=== PATIENT | male | born 1945 | race Caucasian/White ===

== ENCOUNTER 2016-10-25 12:24 | Emergency (ER) | payer MEDICARE ==
[~2016-10-25] VITALS: Ht 172.7 cm; Wt 87.0 kg
[~2016-10-25 12:24] MED LIST: ALBUTEROL1 IN; ALPRAZOLAM0.25 MG PO; BENADRYL25 M1 OR; BUPROPION150 M4 PO; CEPHALEXIN500 MG PO; CIPRO500 MG OR; CIPROFLOXACN500 MG PO; DIPHENHYDRAM25 MG PO; DOXYCYCL HYC100 MG PO; HYDROCHLOR12.5 MG/CA PO; HYDROCHLOROT12.5 MG PO; ISOSORB MONO30 MG PO; LISINOPRIL10 MG PO; LORTAB 1010 MG PO; LORTAB 5/3255 MG; LORTAB 5/3255 MG PO; LORTAB 7.5-3251 TAB PO; LYRICA50 MG PO; MEDDOSEPAK PO; METOPROL TAR25 MG PO; MIRTAZAPINE15 MG PO; NASONEX50 MCG/AC NAB; NITROGLYCRN TL; OXY1; PERCOCET 5/321 COMBO PO; PERCOCET 5/325M1 TAB PO; PERCOCET1 TA1 OR; PERCOCET1 TA3 PO; PLAVIX75 MG PO; PREDNISONE20 MG PO; PREDNISONE50 MG PO; PROAIR HFA IN; SIMVASTATIN40 MG PO; SPIRIVA IN; SYMBICORT1 AE1 IN; TIZANIDINE HCL2 MG PO; TRAMADOL HCL50 MG PO; ULTRAM50 M1 OR; ULTRAM50 M1 PO; VENTOLIN HFA IN; ZOFRAN ODT8 MG PO; ZOLPIDEM10 M1 PO; ZPAK PO
[2016-10-25 14:12] VITALS: BP 138/78
== END 2016-10-25 14:30 | disposition home or self-care (01) ==
LOC: ED 12:24
PROC: 0HQFXZZ Repair Right Hand Skin, External Approach (ICD-10-PCS; principal; 2016-10-25)
DX: S61.210A Laceration without foreign body of right index finger without damage to nail, initial encounter (principal); S60.412A Abrasion of right middle finger, initial encounter; W31.2XXA Contact with powered woodworking and forming machines, initial encounter; Y93.89 Activity, other specified; Y92.009 Unspecified place in unspecified non-institutional (private) residence as the place of occurrence of the external cause

== ENCOUNTER 2017-03-26 21:38 | Observation (INO) | payer MEDICARE ==
[~2017-03-26] VITALS: Ht 172.7 cm; Wt 82.1 kg
[2017-03-26 23:04] LABS: HEMATOCRIT 46.7 % (39.0-50.0); IMMATURE GRANULOCYTES 0.3 % (0.0-1.0); MEAN CELL VOLUME 95.3 fL CALC (80.0-100.0); MEAN CORPUSCULAR HGB 32.7 pG CALC (26.0-32.0); MEAN CORPUSCULAR HGB CONC 34.3 g/L CALC (32.0-36.0); NEUT# 5.62 thou/uL (1.82-7.42); RED BLOOD COUNT 4.9 mill/uL (4.70-6.10); RED CELL DISTRI WIDTH 13.2 % (11.5-15.5)
[2017-03-26 23:11] LABS: ACT PARTIAL THROMBO TIME 26.2 SECONDS (20.0-32.5); PROTHROMBIN TIME 10.9 SECONDS (9.0-12.5)
[2017-03-26 23:22] LABS: ALBUMIN 4.4 g/dL (3.2-5.0); ALKALINE PHOSPHATASE 90 u/l (38-126); ANION GAP 17 (6-22 (CALC)); BILIRUBIN, TOTAL 0.7 mg/dL (0.0-1.4); BUN 13 mg/dL (8-23); BUN/CREATININE RATIO 9 (12-20 (CALC)); CALCIUM 9.8 mg/dL (8.4-10.2); CARBON DIOXIDE 26 mmol/l (22-30); CHLORIDE 109 mmol/l (95-108); CREATININE 1.4 mg/dL (0.7-1.3); GFR 50 ML/MIN (>=60 (CALC)); GFR FOR AFR.AMER. > 60 ML/MIN (>=60 (CALC)); GLUCOSE 87 mg/dL (82-115); POTASSIUM 3.7 mmol/l (3.5-5.1); SGOT/AST 21 u/l (19-48); SGPT/ALT 31 u/l (11-66); SODIUM 148 mmol/l (137-146)
[2017-03-26 23:30] LABS: MYOGLOBIN 75 ng/mL (0 - 121)
[2017-03-27 02:01] LABS: URINE BILIRUBIN - DIPSTICK NEGATIVE (NEGATIVE); URINE BLOOD DIPSTICK TRACE-LYSED (NEGATIVE); URINE CLARITY CLEAR; URINE COLOR YELLOW; URINE GLUCOSE - DIPSTICK NEGATIVE (NEGATIVE); URINE KETONE NEGATIVE (NEGATIVE); URINE LEUK ESTERASE NEGATIVE (NEGATIVE); URINE NITRITE - DIPSTICK NEGATIVE (Negative); URINE PROTEIN - DIPSTICK NEGATIVE (NEG-TRACE); URINE UROBILINOGEN - DIPSTICK 0.2 E.U./dL (0.2)
[2017-03-27 03:05] VITALS: BP 133/66
[2017-03-27 08:08] VITALS: BP 149/75; BP 187/89
[2017-03-27 11:14] VITALS: BP 124/65
[2017-03-27] MEDS ORDERED: PREDNISONE20 MG PO (13:13)
== END 2017-03-27 13:58 | disposition home or self-care (01) ==
LOC: ED 21:38 → ED-I 03-27 00:40 → ED 03-27 01:53 → ICU 03-27 01:54 → MS2 03-27 01:54
PROVIDERS: Emergency Medicine; ADMIT Internal Medicine; ATTEND Internal Medicine
DX: T63.441A Toxic effect of venom of bees, accidental (unintentional), initial encounter (principal); L50.0 Allergic urticaria; J44.1 Chronic obstructive pulmonary disease with (acute) exacerbation; I25.10 Atherosclerotic heart disease of native coronary artery without angina pectoris; I10 Essential (primary) hypertension; E78.5 Hyperlipidemia, unspecified; I73.9 Peripheral vascular disease, unspecified; F17.210 Nicotine dependence, cigarettes, uncomplicated; Z95.828 Presence of other vascular implants and grafts; Z95.5 Presence of coronary angioplasty implant and graft; Z95.1 Presence of aortocoronary bypass graft

== ENCOUNTER 2017-05-05 15:54 | Emergency (ER) | payer MEDICARE ==
[~2017-05-05] VITALS: Ht 172.7 cm; Wt 80.0 kg
[2017-05-05] MEDS ORDERED: EPIPEN 2-P0.3 MG/0.3 SC (18:44)
[2017-05-05 18:51] VITALS: BP 114/59
== END 2017-05-05 19:03 | disposition home or self-care (01) ==
LOC: ED 15:54
DX: T63.441A Toxic effect of venom of bees, accidental (unintentional), initial encounter (principal); J44.9 Chronic obstructive pulmonary disease, unspecified; I25.10 Atherosclerotic heart disease of native coronary artery without angina pectoris; I73.9 Peripheral vascular disease, unspecified; I10 Essential (primary) hypertension; E78.00 Pure hypercholesterolemia, unspecified; F17.210 Nicotine dependence, cigarettes, uncomplicated; Z95.1 Presence of aortocoronary bypass graft; Z95.5 Presence of coronary angioplasty implant and graft; Z95.828 Presence of other vascular implants and grafts

== ENCOUNTER 2020-01-08 20:50 | Observation (INO) | payer MEDICARE ==
[~2020-01-08] VITALS: Ht 172.7 cm; Wt 81.3 kg
[~2020-01-08 20:50] MED LIST changes: +EPIPEN 2-P0.3 MG/0.3 SC
[2020-01-08 21:40] LABS: HEMATOCRIT 48.3 % (39.0-50.0); HEMOGLOBIN 15.7 g/dl (14.0-18.0); IMMATURE GRANULOCYTES 0.4 % (0.0-5.0); MEAN CELL VOLUME 93.2 fL CALC (80.0-100.0); MEAN CORPUSCULAR HGB 30.3 pG CALC (26.0-32.0); MEAN CORPUSCULAR HGB CONC 32.5 g/dL CAL (32.0-36.0); NEUT# 7.64 thou/uL (1.82-7.42); RED BLOOD COUNT 5.18 mill/uL (4.70-6.10); RED CELL DISTRI WIDTH 14.2 % (11.5-15.5)
[2020-01-08 21:49] LABS: ALBUMIN 4.5 g/dL (3.2-5.0); BILIRUBIN, TOTAL 0.5 mg/dL (0.0-1.4); CREATININE 1.6 mg/dL (0.7-1.3); POTASSIUM 3.8 mmol/l (3.5-5.1); TOTAL PROTEIN 7.2 g/dL (6.3-8.2)
[2020-01-08 22:16] LABS: MYOGLOBIN 143 ng/mL (0 - 121)
[2020-01-08 23:57] VITALS: BP 127/58
[2020-01-09 03:45] VITALS: BP 114/61
[2020-01-09 08:00] VITALS: BP 106/55
[2020-01-09 09:48] VITALS: BP 106/55
[2020-01-09] MEDS ORDERED: KLONOPIN0.5 MG PO (09:49)
[2020-01-09] MEDS ORDERED: EPIPEN 2-P0.3 MG/0.3 IM (09:51)
[2020-01-09] MEDS ORDERED: MEDDOSEPAK PO (09:52)
== END 2020-01-09 10:28 | disposition home or self-care (01) ==
LOC: ED 20:50 → ED-I 22:44 → ED 22:59 → MS2 23:00
PROVIDERS: Emergency Medicine; ADMIT Internal Medicine; ATTEND Internal Medicine
DX: T63.441A Toxic effect of venom of bees, accidental (unintentional), initial encounter (principal); R07.9 Chest pain, unspecified; R06.2 Wheezing; R06.02 Shortness of breath; I10 Essential (primary) hypertension; J43.9 Emphysema, unspecified; I25.10 Atherosclerotic heart disease of native coronary artery without angina pectoris; I73.9 Peripheral vascular disease, unspecified; E78.5 Hyperlipidemia, unspecified; F17.210 Nicotine dependence, cigarettes, uncomplicated; I25.2 Old myocardial infarction; Z86.73 Personal history of transient ischemic attack (TIA), and cerebral infarction without residual deficits; Z95.828 Presence of other vascular implants and grafts; Z95.1 Presence of aortocoronary bypass graft; Z95.5 Presence of coronary angioplasty implant and graft; Z99.81 Dependence on supplemental oxygen; Z11.59 Encounter for screening for other viral diseases
CPT/HCPCS: G0378

== ENCOUNTER 2021-05-11 14:42 | Emergency (ER) | payer MEDICARE ==
[~2021-05-11] VITALS: Ht 172.7 cm; Wt 80.0 kg
[~2021-05-11 14:42] MED LIST changes: +EPIPEN 2-P0.3 MG/0.3 IM; +KLONOPIN0.5 MG PO
[2021-05-11 15:39] LABS: HEMATOCRIT 49.9 % (39.0-50.0); HEMOGLOBIN 16.8 g/dl (14.0-18.0); IMMATURE GRANULOCYTES 0.2 % (0.0-5.0); MEAN CELL VOLUME 94.3 fL CALC (80.0-100.0); MEAN CORPUSCULAR HGB 31.8 pG CALC (26.0-32.0); MEAN CORPUSCULAR HGB CONC 33.7 g/dL CAL (32.0-36.0); NEUT# 2.76 thou/uL (1.82-7.42); RED BLOOD COUNT 5.29 mill/uL (4.70-6.10); RED CELL DISTRI WIDTH 14.1 % (11.5-15.5)
[2021-05-11 15:57] LABS: ALBUMIN 4.5 g/dL (3.2-5.0); ALKALINE PHOSPHATASE 94 u/l (38-126); AMYLASE 85 u/l (30-110); ANION GAP 14 (6-22 (CALC)); BUN 31 mg/dL (8-23); BUN/CREATININE RATIO 16 (12-20 (CALC)); CARBON DIOXIDE 27 mmol/l (22-30); CHLORIDE 100 mmol/l (95-108); CREATININE 1.9 mg/dL (0.7-1.3); GFR 35 ML/MIN (>=60 (CALC)); GFR FOR AFR.AMER. 42 ML/MIN (>=60 (CALC)); LIPASE 287 u/l (23-300); POTASSIUM 4.3 mmol/l (3.5-5.1); SODIUM 137 mmol/l (137-146)
[2021-05-11 15:58] LABS: ACT PARTIAL THROMBO TIME 26.1 SECONDS (20.0-32.5); PROTHROMBIN TIME 10.1 SECONDS (9.0-12.5)
[2021-05-11 16:01] LABS: BILIRUBIN, TOTAL 0.8 mg/dL (0.0-1.4); SGOT/AST 52 u/l (19-48)
[2021-05-11] MEDS ORDERED: ZOFRAN4 MG/TAB PO (16:41)
[2021-05-11 17:33] VITALS: BP 137/73
== END 2021-05-11 17:33 | disposition home or self-care (01) ==
LOC: ED 14:42
DX: U07.1 COVID-19 (principal); E86.0 Dehydration; J44.9 Chronic obstructive pulmonary disease, unspecified; I10 Essential (primary) hypertension; I25.2 Old myocardial infarction; Z99.81 Dependence on supplemental oxygen; F17.210 Nicotine dependence, cigarettes, uncomplicated

== ENCOUNTER 2022-06-23 17:29 | Emergency (ER) | payer MEDICARE ==
[~2022-06-23] VITALS: Ht 172.7 cm; Wt 68.2 kg
[~2022-06-23 17:29] MED LIST changes: +ZOFRAN4 MG/TAB PO
[2022-06-23 17:43] VITALS: BP 160/76
[2022-06-23 18:01] LABS: HEMATOCRIT 43.3 % (39.0-50.0); HEMOGLOBIN 14.2 g/dl (14.0-18.0); IMMATURE GRANULOCYTES 0.2 % (0.0-5.0); MEAN CELL VOLUME 95.6 fL CALC (80.0-100.0); MEAN CORPUSCULAR HGB 31.3 pG CALC (26.0-32.0); MEAN CORPUSCULAR HGB CONC 32.8 g/dL CAL (32.0-36.0); NEUT# 5.73 thou/uL (1.82-7.42); RED BLOOD COUNT 4.53 mill/uL (4.70-6.10)
[2022-06-23 18:12] LABS: ALBUMIN 4.3 g/dL (3.2-5.0); ALKALINE PHOSPHATASE 90 u/l (38-126); ANION GAP 12 (6-22 (CALC)); BILIRUBIN, TOTAL 0.2 mg/dL (0.0-1.4); BUN 16 mg/dL (8-23); BUN/CREATININE RATIO 13 (12-20 (CALC)); CARBON DIOXIDE 30 mmol/l (22-30); CHLORIDE 104 mmol/l (95-108); CREATININE 1.3 mg/dL (0.7-1.3); GFR FOR AFR.AMER. > 60 ML/MIN (>=60 (CALC)); GFR OTHER RACES 54 ML/MIN (>=60 (CALC)); POTASSIUM 3.7 mmol/l (3.5-5.1); SGOT/AST 54 u/l (19-48); SODIUM 142 mmol/l (137-146); TOTAL PROTEIN 7.1 g/dL (6.3-8.2)
[2022-06-23 18:20] LABS: ACT PARTIAL THROMBO TIME 23.5 SECONDS (20.0-32.5); PROTHROMBIN TIME 10.2 SECONDS (9.0-12.5)
[2022-06-23 20:50] VITALS: BP 121/66
[2022-06-23 21:00] VITALS: BP 122/58
== END 2022-06-23 20:11 | disposition short-term general hospital (02) ==
LOC: ED 17:29
PROVIDERS: Nurse Practitioner
DX: I77.9 Disorder of arteries and arterioles, unspecified (principal); I10 Essential (primary) hypertension; J44.9 Chronic obstructive pulmonary disease, unspecified; G20 Parkinson's disease; I71.40 Abdominal aortic aneurysm, without rupture, unspecified; I25.2 Old myocardial infarction; F17.200 Nicotine dependence, unspecified, uncomplicated; Z95.1 Presence of aortocoronary bypass graft; Z95.5 Presence of coronary angioplasty implant and graft; Z79.02 Long term (current) use of antithrombotics/antiplatelets; Z95.820 Peripheral vascular angioplasty status with implants and grafts; Z20.822 Contact with and (suspected) exposure to COVID-19
CPT/HCPCS: J1644

== ENCOUNTER 2022-06-29 15:43 | Inpatient (IN) | payer MEDICARE ==
[2022-06-29] VITALS (13 sets, daily range): BP systolic 70–168; BP diastolic 44–92
[~2022-06-29] VITALS: Ht 172.7 cm; Wt 70.0 kg
--- NOTE | 2022-06-29 15:45 | NUR ---
PT TO ROOM VIA WC
[2022-06-29 16:27] LABS: HEMATOCRIT 45.7 % (39.0-50.0); HEMOGLOBIN 14.9 g/dl (14.0-18.0); IMMATURE GRANULOCYTES 0.2 % (0.0-5.0); MEAN CORPUSCULAR HGB 31.3 pG CALC (26.0-32.0); MEAN CORPUSCULAR HGB CONC 32.6 g/dL CAL (32.0-36.0); NEUT# 7.7 thou/uL (1.82-7.42); RED BLOOD COUNT 4.76 mill/uL (4.70-6.10); RED CELL DISTRI WIDTH 14.1 % (11.5-15.5)
[2022-06-29 16:36] LABS: ALBUMIN 4.6 g/dL (3.2-5.0); CREATININE 1.4 mg/dL (0.7-1.3); POTASSIUM 3.8 mmol/l (3.5-5.1); TOTAL PROTEIN 8.2 g/dL (6.3-8.2)
[2022-06-29 16:37] LABS: BILIRUBIN, TOTAL 0.8 mg/dL (0.0-1.4)
[2022-06-29 16:40] LABS: PROTHROMBIN TIME 10.4 SECONDS (9.0-12.5)
--- NOTE | 2022-06-29 17:55 | NUR ---
PT ADVISED OF WAIT TIME FOR TEST RESULTS. CALL LIGHT PROVIDED.
--- NOTE | 2022-06-29 19:00 | NUR ---
PT ADVISED OF CURRENT POC. VOICED UNDERSTANDING.
--- NOTE | 2022-06-29 20:13 | NUR ---
pt to radiology for us of ble, returned without incident.
--- NOTE | 2022-06-29 20:50 | NUR ---
REPORT CALLED TO SANJEEV HERMAN PT TO ICU ON HEPARING DRIP IV SITE HEALTHY. STABLE CONDITION.
--- NOTE | 2022-06-29 21:10 | NUR ---
PT ARRIVED TO UNIT VIA STRETCHER, ON NC AT 2L, WITH HEPARIN DRIP CONNECTED. PT DOES NOT LOOK TO BE IN ANY DISTRESS. ALERT AND ORIENTED, FOLLOWING COMMANDS. PT WAS ABLE TO STAND AND PIVOT TO THE BED, BUT LOOKS TO BE SLIGHTLY UNSTABLE. BODY ASSESSMENT COMPLETED, PT HAS MILD BRUISING TO HIS LEFT GROIN, BUT SKIN IS INTACT THROUGHOUT. PT DENIES PAIN AT THIS TIME. VITAL SIGNS ARE WITHIN NORMAL LIMITS. CALL LIGHT AND PERSONAL BELONGINGS WITHIN REACH.
--- NOTE | 2022-06-29 22:00 | NUR ---
SHIFT REASSESSMENT - NO CHANGE IN PT STATUS AT THIS TIME. VITAL SIGNS ARE WITHIN NORMAL LIMITS. PT CONTINUES ON HEPARIN DRIP. CALL LIGHT WITHIN REACH. SAFETY PRECAUTIONS ARE IN PLACE.
[2022-06-30] VITALS (48 sets, daily range): BP systolic 94–162; BP diastolic 59–125
--- NOTE | 2022-06-30 | NUR ---
SHIFT REASSESSMENT - NO CHANGE IN PT STATUS AT THIS TIME.
--- NOTE | 2022-06-30 02:00 | NUR ---
SHIFT REASSESSMENT - PTT DRAWN BY THE LAB, RESULTS PENDING.
--- NOTE | 2022-06-30 02:00 | NUR ---
PTT RESULTED, TITRATED HEPARIN PER PERAMETERS.
--- NOTE | 2022-06-30 04:00 | NUR ---
SHIFT REASSESSMENT - NEXT PTT FOR PT WILL BE ON 0830 TODAY. NO CHANGES IN PT STATUS AT THIS TIME. VITAL SIGNS ARE WITHIN NORMAL LIMITS. CALL LIGHT WITHIN REACH. SAFETY PRECAUTIONS ARE IN PLACE.
[2022-06-30 05:56] LABS: HEMATOCRIT 41.3 % (39.0-50.0); HEMOGLOBIN 13.7 g/dl (14.0-18.0); IMMATURE GRANULOCYTES 0.2 % (0.0-5.0); MEAN CELL VOLUME 94.7 fL CALC (80.0-100.0); MEAN CORPUSCULAR HGB 31.4 pG CALC (26.0-32.0); MEAN CORPUSCULAR HGB CONC 33.2 g/dL CAL (32.0-36.0); NEUT# 5.12 thou/uL (1.82-7.42); RED BLOOD COUNT 4.36 mill/uL (4.70-6.10); RED CELL DISTRI WIDTH 13.7 % (11.5-15.5)
--- NOTE | 2022-06-30 06:00 | NUR ---
SHIFT REASSESSMENT - NO CHANGE IN PT STATUS AT THIS TIME. CALL LIGHT AND PERSONAL BELONGINGS WITHIN REACH.
[2022-06-30 06:10] LABS: ALKALINE PHOSPHATASE 103 u/l (38-126); ANION GAP 12 (6-22 (CALC)); BUN 23 mg/dL (8-23); BUN/CREATININE RATIO 20 (12-20 (CALC)); CARBON DIOXIDE 25 mmol/l (22-30); CHLORIDE 106 mmol/l (95-108); CREATININE 1.2 mg/dL (0.7-1.3); GFR FOR AFR.AMER. > 60 ML/MIN (>=60 (CALC)); GFR OTHER RACES 59 ML/MIN (>=60 (CALC)); MAGNESIUM 2.2 mg/dL (1.6-2.3); POTASSIUM 4.2 mmol/l (3.5-5.1); SGOT/AST 43 u/l (19-48); SODIUM 139 mmol/l (137-146); TOTAL PROTEIN 7.1 g/dL (6.3-8.2)
[2022-06-30 06:16] LABS: BILIRUBIN, TOTAL 0.4 mg/dL (0.0-1.4)
--- NOTE | 2022-06-30 08:06 | NUR ---
REPORT RECEIVED FROM JUNE KRISHNA FOR CONTINUATION OF CARE. PT RESTING QUIETLY IN BED, VITAL SIGNS STABLE. PT IS POOR HISTORIAN, WILL TRY AND GET MED LIST RECONCILLED PER DOCTOR IS POSSIBLE TODAY.
--- NOTE | 2022-06-30 09:55 | NUR ---
PTT CAME BACK AT 49.5 PER PROTOCOL RATE CHANGE OF 2 UNITS/KG/HR. HEPARIN IS AT 1450 AT THIS TIME
[2022-06-30] MEDS ORDERED: PROAIR HFA IN (09:59)
[2022-06-30] MEDS ORDERED: NORVASC5 M1 PO (09:59)
[2022-06-30] MEDS ORDERED: ASPIRIN 81 LOW81 MG PO (10:00)
[2022-06-30] MEDS ORDERED: CLOPIDOGREL75 MG PO (10:00)
[2022-06-30] MEDS ORDERED: FLONASE AL50 MCG/ACT IN (10:01)
[2022-06-30] MEDS ORDERED: HYDROCHLOROT12.5 M1 PO (10:02)
[2022-06-30] MEDS ORDERED: ISOSORB MONO20 MG PO (10:03)
[2022-06-30] MEDS ORDERED: METOPROL TAR25 MG PO (10:03)
[2022-06-30] MEDS ORDERED: PROTONIX40 M2 PO (10:10)
[2022-06-30] MEDS ORDERED: HYDROCO/APAP1 TA9 PO (10:10)
[2022-06-30] MEDS ORDERED: LYRICA100 MG PO (10:11)
[2022-06-30] MEDS ORDERED: SIMVASTATIN40 MG PO (10:13)
[2022-06-30] MEDS ORDERED: XARELTO15 MG PO (10:13)
[2022-06-30] MEDS ORDERED: SYMBICORT1 AE1 IN (10:14)
--- NOTE | 2022-06-30 13:03 | NUR ---
pt sitting up in bed, watching tv, family at bedside. denies any complaint but leg pain, advised i had given him his pain medication about 2 hours ago and it was not time again.
--- NOTE | 2022-06-30 16:23 | NUR ---
notified dr. green of ptt results. heparin drip will be stopped and he is placing an order of xarelto bid in instead. pt on phone for last two hours and on computer. no complaints. vital signs stable.
--- NOTE | 2022-06-30 17:26 | NUR ---
PT STATING HE WANTS TO GO HOME, ADVISED PT AGAINST IT UNTIL WE CAN REGULATE HIM ON HIS XARELTO. HE STATES HE IS GOING TO GO HOME EARLY IN AM, WASNT STAYING ANOTHER DAY. SPOKE TO PT ABOUT KEEPING HEPARIN DRIP ON UNTIL DOCTOR PUTS IN ORDERS FOR XARELTO PO.
--- NOTE | 2022-06-30 20:00 | NUR ---
PT ALERT AND ORIENTED, RESTING COMFORTABLY IN BED. SHOWING NO SIGNS OF DISTRESS. PT INFORMED THAT GOAL TONIGHT SHOULD BE TO BE STARTED ON XARELTO AND HEPARIN DRIP WILL BE STOPPED. PT EXPAINED THAT HIS GIAL IS TO BE SENT HOME TOMORROW. VITAL SIGNS ARE WITHIN NORMAL LIMITS. SAFETY PRECAUTIONS ARE IN PLACE.
--- NOTE | 2022-06-30 22:00 | NUR ---
SHIFT REASSESSMENT - PT GIVEN FIRST DOSE OF XARELTO. PT VERY EXCITED PROGRESS IN TREATMENT PLAN. HEPARIN HAS BEEN DISCONTINUED. FUTURE PTT HAS BEEN CANCELLED.
[2022-07-01] VITALS (19 sets, daily range): BP systolic 73–166; BP diastolic 42–115
--- NOTE | 2022-07-01 | NUR ---
SHIFT REASSESSMENT - NO CHANGES IN PT STATUS AT THIS TIME. VITAL SIGNS ARE WITHIN NORMAL LIMITS. CALL LIGHT AND SAFETY PRECAUTIONS IN PLACE.
--- NOTE | 2022-07-01 02:00 | NUR ---
SHIFT REASSESSMENT - NO CHANGE IN PT STATUS AT THIS TIME. VITAL SIGNS ARE WITHIN NORMAL LIMITS. CALL LIGHT AND PERSONAL BELONGINGS WITHIN REACH.
--- NOTE | 2022-07-01 04:00 | NUR ---
SHIFT REASSESSMENT - PT REPORTED PAIN IN HIS RIGHT LEG. EXPLAINS THAT HE IS STARTING TO FEEL SENSATION IN THE RIGHT LEG. HE EXPLAINED THAT WHEN HE WAS FIRST ADMITTED HE COULD NOT FEEL HIS FOOT. PTS RIGHT LEG ASSESSED. POSITIVE PULSES, BUT THREADY. NO PAIN WHEN TOUCHED. PT GIVEN PRN PAIN MEDICATION FOR DISCOMFORT.
[2022-07-01 05:58] LABS: HEMATOCRIT 39.4 % (39.0-50.0); HEMOGLOBIN 13.1 g/dl (14.0-18.0); MEAN CELL VOLUME 93.8 fL CALC (80.0-100.0); MEAN CORPUSCULAR HGB 31.2 pG CALC (26.0-32.0); MEAN CORPUSCULAR HGB CONC 33.2 g/dL CAL (32.0-36.0); RED BLOOD COUNT 4.2 mill/uL (4.70-6.10); RED CELL DISTRI WIDTH 13.6 % (11.5-15.5)
--- NOTE | 2022-07-01 06:00 | NUR ---
SHIFT REASSESSMENT - NO CHANGE IN PT STATUS AT THIS TIME.
[2022-07-01 06:15] LABS: ANION GAP 12 (6-22 (CALC)); BUN 20 mg/dL (8-23); BUN/CREATININE RATIO 18 (12-20 (CALC)); CARBON DIOXIDE 23 mmol/l (22-30); CHLORIDE 109 mmol/l (95-108); CREATININE 1.1 mg/dL (0.7-1.3); GFR FOR AFR.AMER. > 60 ML/MIN (>=60 (CALC)); GFR OTHER RACES > 60 ML/MIN (>=60 (CALC)); MAGNESIUM 2.1 mg/dL (1.6-2.3); POTASSIUM 3.6 mmol/l (3.5-5.1); SODIUM 140 mmol/l (137-146)
[2022-07-01] MEDS ORDERED: XARELTO15 MG PO (08:35)
[2022-07-01] MEDS ORDERED: PREDNISONE10 MG PO (08:39)
[2022-07-01] MEDS ORDERED: ZITHROMAX250 MG PO (08:39)
[2022-07-01] MEDS ORDERED: OMNICEF300 MG PO (08:39)
--- NOTE | 2022-07-01 09:30 | NUR ---
bilat IV's removed, monitoring equipment removed, pt getting dressed independently
--- NOTE | 2022-07-01 09:55 | NUR ---
pt given d/c instructions and ambulated out with son, steady gait, cane, no SOB or weakness noted
== END 2022-07-01 09:50 | DRG 175 ==
LOC: ED 15:43 → ED-I 17:32 → ED 20:10 → ICU 20:11
PROVIDERS: Internal Medicine; Nurse Practitioner; ADMIT Internal Medicine; ATTEND Internal Medicine
DX: I26.99 Other pulmonary embolism without acute cor pulmonale (principal); J18.9 Pneumonia, unspecified organism; J96.11 Chronic respiratory failure with hypoxia; I10 Essential (primary) hypertension; G20 Parkinson's disease; I25.10 Atherosclerotic heart disease of native coronary artery without angina pectoris; I73.9 Peripheral vascular disease, unspecified; J43.9 Emphysema, unspecified; R91.8 Other nonspecific abnormal finding of lung field; E78.5 Hyperlipidemia, unspecified; G62.9 Polyneuropathy, unspecified; F17.210 Nicotine dependence, cigarettes, uncomplicated; T45.516A Underdosing of anticoagulants, initial encounter; I25.2 Old myocardial infarction; Z91.128 Patient's intentional underdosing of medication regimen for other reason; Z95.1 Presence of aortocoronary bypass graft; Z86.73 Personal history of transient ischemic attack (TIA), and cerebral infarction without residual deficits; Z95.828 Presence of other vascular implants and grafts; Z95.820 Peripheral vascular angioplasty status with implants and grafts; Z86.718 Personal history of other venous thrombosis and embolism
CPT/HCPCS: J1644; Q9967

== ENCOUNTER 2022-07-22 17:48 | Emergency (ER) | payer MEDICARE ==
[~2022-07-22] VITALS: Ht 172.7 cm; Wt 81.8 kg
[2022-07-22] VITALS (8 sets, daily range): BP systolic 99–135; BP diastolic 52–82
[~2022-07-22 17:48] MED LIST changes: +ASPIRIN 81 LOW81 MG PO; +CLOPIDOGREL75 MG PO; +FLONASE AL50 MCG/ACT IN; +HYDROCHLOROT12.5 M1 PO; +HYDROCO/APAP1 TA9 PO; +ISOSORB MONO20 MG PO; +LYRICA100 MG PO; +NORVASC5 M1 PO; +OMNICEF300 MG PO; +PREDNISONE10 MG PO; +PROTONIX40 M2 PO; +XARELTO15 MG PO; +ZITHROMAX250 MG PO
[2022-07-22] MEDS ORDERED: ZITHROMAX Z-PA250 MG PO (20:34)
[2022-07-22] MEDS ORDERED: AMOX/K CLAV875 M1 PO (20:34)
[2022-07-22] MEDS ORDERED: LORTAB 1010 MG PO (21:23)
== END 2022-07-22 22:15 | disposition home or self-care (01) ==
LOC: ED 17:48
DX: S41.152A Open bite of left upper arm, initial encounter (principal); S41.151A Open bite of right upper arm, initial encounter; S81.851A Open bite, right lower leg, initial encounter; I10 Essential (primary) hypertension; J44.9 Chronic obstructive pulmonary disease, unspecified; I71.40 Abdominal aortic aneurysm, without rupture, unspecified; G20 Parkinson's disease; I25.2 Old myocardial infarction; F17.200 Nicotine dependence, unspecified, uncomplicated; W55.01XA Bitten by cat, initial encounter; Z95.1 Presence of aortocoronary bypass graft; Z95.5 Presence of coronary angioplasty implant and graft; Z86.718 Personal history of other venous thrombosis and embolism

== ENCOUNTER 2022-08-01 15:51 | Emergency (ER) | payer MEDICARE ==
[2022-08-01] VITALS (33 sets, daily range): BP systolic 98–134; BP diastolic 43–69
[~2022-08-01] VITALS: Ht 172.7 cm; Wt 66.0 kg
[~2022-08-01 15:51] MED LIST changes: +AMOX/K CLAV875 M1 PO; +ZITHROMAX Z-PA250 MG PO
[2022-08-01 17:03] LABS: IMMATURE GRANULOCYTES 0.2 % (0.0-5.0); MEAN CORPUSCULAR HGB 28.8 pG CALC (26.0-32.0); MEAN CORPUSCULAR HGB CONC 30.7 g/dL CAL (32.0-36.0); NEUT# 4.38 thou/uL (1.82-7.42); RED BLOOD COUNT 2.81 mill/uL (4.70-6.10); RED CELL DISTRI WIDTH 14.5 % (11.5-15.5)
[2022-08-01 17:04] LABS: HEMATOCRIT 26.4 % (39.0-50.0); HEMOGLOBIN 8.1 g/dl (14.0-18.0)
[2022-08-01 17:19] LABS: ALBUMIN 4.3 g/dL (3.2-5.0); ALKALINE PHOSPHATASE 88 u/l (38-126); ANION GAP 11 (6-22 (CALC)); BILIRUBIN, TOTAL 0.3 mg/dL (0.0-1.4); BUN 17 mg/dL (8-23); BUN/CREATININE RATIO 13 (12-20 (CALC)); CHLORIDE 101 mmol/l (95-108); CREATININE 1.3 mg/dL (0.7-1.3); GFR FOR AFR.AMER. > 60 ML/MIN (>=60 (CALC)); GFR OTHER RACES 54 ML/MIN (>=60 (CALC)); LIPASE 91 u/l (23-300); POTASSIUM 3.7 mmol/l (3.5-5.1); SGOT/AST 30 u/l (19-48); SODIUM 139 mmol/l (137-146); TOTAL PROTEIN 7.1 g/dL (6.3-8.2)
[2022-08-01 17:20] LABS: CARBON DIOXIDE 31 mmol/l (22-30)
[2022-08-01 17:32] LABS: MYOGLOBIN 59 ng/mL (0 - 121)
[2022-08-01] MEDS ORDERED: [UNRECOGNIZED DRUG - OTHER] (18:47)
[2022-08-01] MEDS ORDERED: VENTOLIN HFA IN (18:48)
[2022-08-01] MEDS ORDERED: SPIRIVA RE2.5 MCG/AC (18:50)
[2022-08-01] MEDS ORDERED: VENTOLIN HF1 IN (18:50)
[2022-08-01] MEDS ORDERED: HYDROCHLOROT12.5 M1 PO (18:51)
[2022-08-01] MEDS ORDERED: MIRTAZAPINE15 MG PO (18:51)
[2022-08-01] MEDS ORDERED: ROPINIROLE0.5 MG PO (18:51)
[2022-08-01] MEDS ORDERED: CLONIDINE0.1 MG PO (18:52)
[2022-08-01] MEDS ORDERED: ONDANSETRON4 MG PO (18:52)
[2022-08-01] MEDS ORDERED: VISTARIL25 MG PO (18:53)
[2022-08-01] MEDS ORDERED: LYRICA50 MG PO (18:55)
[2022-08-01] MEDS ORDERED: METOPROL TAR25 MG PO (18:55)
[2022-08-01] MEDS ORDERED: ALL DAY10 MG PO (18:56)
[2022-08-01 20:12] LABS: URINE BILIRUBIN - DIPSTICK NEGATIVE (NEGATIVE); URINE BLOOD DIPSTICK LARGE (NEGATIVE); URINE COLOR YELLOW; URINE GLUCOSE - DIPSTICK NEGATIVE (NEGATIVE); URINE KETONE NEGATIVE (NEGATIVE); URINE LEUK ESTERASE NEGATIVE (NEGATIVE); URINE PROTEIN - DIPSTICK 30 mg/dL (NEG-TRACE); URINE UROBILINOGEN - DIPSTICK 0.2 E.U./dL (0.2)
[2022-08-01 20:13] LABS: URINE NITRITE - DIPSTICK NEGATIVE (Negative)
[2022-08-01 20:19] LABS: URINE WBC 0-2 WBC/hpf (0-5)
== END 2022-08-01 23:49 | disposition short-term general hospital (02) ==
LOC: ED 15:51
PROVIDERS: Emergency Medicine
PROC: 30233N1 Transfusion of Nonautologous Red Blood Cells into Peripheral Vein, Percutaneous Approach (ICD-10-PCS; principal; 2022-08-01)
DX: K92.2 Gastrointestinal hemorrhage, unspecified (principal); D64.9 Anemia, unspecified; J18.9 Pneumonia, unspecified organism; J44.0 Chronic obstructive pulmonary disease with (acute) lower respiratory infection; E11.9 Type 2 diabetes mellitus without complications; I25.2 Old myocardial infarction; G20 Parkinson's disease; I71.40 Abdominal aortic aneurysm, without rupture, unspecified; F17.200 Nicotine dependence, unspecified, uncomplicated; Z95.1 Presence of aortocoronary bypass graft; Z95.5 Presence of coronary angioplasty implant and graft; Z86.718 Personal history of other venous thrombosis and embolism; Z99.81 Dependence on supplemental oxygen
CPT/HCPCS: P9016; Q9967; S0164

== ENCOUNTER 2022-08-12 16:37 | Emergency (ER) | payer MEDICARE ==
[2022-08-12] VITALS (33 sets, daily range): BP systolic 102–152; BP diastolic 47–86
[~2022-08-12] VITALS: Ht 172.7 cm; Wt 67.5 kg
[~2022-08-12 16:37] MED LIST changes: +ALL DAY10 MG PO; +CLONIDINE0.1 MG PO; +ONDANSETRON4 MG PO; +ROPINIROLE0.5 MG PO; +SPIRIVA RE2.5 MCG/AC; +VENTOLIN HF1 IN; +VISTARIL25 MG PO; +[UNRECOGNIZED DRUG - OTHER]
[2022-08-12 18:01] LABS: BASO% 0.3 % (0-3); EOS% 0.6 % (0-8); IMMATURE GRANULOCYTES 0.2 % (0.0-5.0); MEAN CORPUSCULAR HGB 27.4 pG CALC (26.0-32.0); MEAN CORPUSCULAR HGB CONC 30.8 g/dL CAL (32.0-36.0); MONO% 7.6 % (2-13); NEUT# 9.19 thou/uL (1.82-7.42); NEUT% 78.3 % (42-76); RED BLOOD COUNT 2.19 mill/uL (4.70-6.10); RED CELL DISTRI WIDTH 15.7 % (11.5-15.5)
[2022-08-12 18:07] LABS: HEMATOCRIT 19.5 % (39.0-50.0)
[2022-08-12 18:32] LABS: ALBUMIN 4.1 g/dL (3.2-5.0); BILIRUBIN, TOTAL 0.4 mg/dL (0.0-1.4); CREATININE 1.4 mg/dL (0.7-1.3); POTASSIUM 4.4 mmol/l (3.5-5.1); TOTAL PROTEIN 6.2 g/dL (6.3-8.2)
[2022-08-13] VITALS: BP 107/51
[2022-08-13 00:35] VITALS: BP 107/51
== END 2022-08-13 00:37 | disposition short-term general hospital (02) ==
LOC: ED 16:37
PROVIDERS: Family Medicine
PROC: 30233N1 Transfusion of Nonautologous Red Blood Cells into Peripheral Vein, Percutaneous Approach (ICD-10-PCS; principal; 2022-08-12)
DX: K31.811 Angiodysplasia of stomach and duodenum with bleeding (principal); I10 Essential (primary) hypertension; J44.9 Chronic obstructive pulmonary disease, unspecified; I71.40 Abdominal aortic aneurysm, without rupture, unspecified; I25.2 Old myocardial infarction; G20 Parkinson's disease; Z86.718 Personal history of other venous thrombosis and embolism; Z95.1 Presence of aortocoronary bypass graft; Z95.5 Presence of coronary angioplasty implant and graft; Z20.822 Contact with and (suspected) exposure to COVID-19
CPT/HCPCS: P9016

== ENCOUNTER 2022-08-29 14:01 | Emergency (ER) | payer MEDICARE ==
[2022-08-29] VITALS (11 sets, daily range): BP systolic 99–128; BP diastolic 42–67
[~2022-08-29] VITALS: Ht 172.7 cm; Wt 63.5 kg
[2022-08-29 16:52] LABS: BASO% 0.3 % (0-3); EOS% 1.5 % (0-8); IMMATURE GRANULOCYTES 0.2 % (0.0-5.0); LYMPH% 16.2 % (15-41); MEAN CELL VOLUME 85.4 fL CALC (80.0-100.0); MEAN CORPUSCULAR HGB 26.3 pG CALC (26.0-32.0); MEAN CORPUSCULAR HGB CONC 30.8 g/dL CAL (32.0-36.0); NEUT# 4.61 thou/uL (1.82-7.42); NEUT% 74.8 % (42-76); RED BLOOD COUNT 4.11 mill/uL (4.70-6.10); RED CELL DISTRI WIDTH 15.4 % (11.5-15.5)
[2022-08-29 16:53] LABS: HEMATOCRIT 35.1 % (39.0-50.0); HEMOGLOBIN 10.8 g/dl (14.0-18.0)
[2022-08-29 17:23] LABS: ALBUMIN 4.9 g/dL (3.2-5.0); BILIRUBIN, TOTAL 0.5 mg/dL (0.0-1.4); CHLORIDE 103 mmol/l (95-108); CREATININE 1.4 mg/dL (0.7-1.3); GFR FOR AFR.AMER. 60 ML/MIN (>=60 (CALC)); GFR OTHER RACES 49 ML/MIN (>=60 (CALC)); POTASSIUM 3.9 mmol/l (3.5-5.1); SGOT/AST 26 u/l (19-48); SODIUM 142 mmol/l (137-146)
[2022-08-29 17:33] LABS: ALKALINE PHOSPHATASE 112 u/l (38-126); ANION GAP 12 (6-22 (CALC)); BUN 14 mg/dL (8-23); BUN/CREATININE RATIO 10 (12-20 (CALC)); CARBON DIOXIDE 31 mmol/l (22-30); TOTAL PROTEIN 8.1 g/dL (6.3-8.2)
[2022-08-29 19:46] LABS: URINE BLOOD DIPSTICK LARGE (NEGATIVE); URINE GLUCOSE - DIPSTICK NEGATIVE (NEGATIVE); URINE KETONE TRACE mg/dL (NEGATIVE); URINE LEUK ESTERASE NEGATIVE (NEGATIVE); URINE PH 5.5 (4.5-8.0); URINE PROTEIN - DIPSTICK 30 mg/dL (NEG-TRACE); URINE SPECIFIC GRAVITY >=1.030; URINE UROBILINOGEN - DIPSTICK 0.2 E.U./dL (0.2)
[2022-08-29 19:52] LABS: URINE BILIRUBIN - DIPSTICK SMALL (NEGATIVE); URINE COLOR AMBER; URINE NITRITE - DIPSTICK NEGATIVE (Negative)
[2022-08-29 20:07] LABS: URINE WBC 0-2 WBC/hpf (0-5)
[2022-08-30 20:41] VITALS: BP 105/50
== END 2022-08-29 21:02 | disposition home or self-care (01) ==
LOC: ED 14:01
PROVIDERS: Nurse Practitioner
DX: E86.0 Dehydration (principal); I10 Essential (primary) hypertension; J44.9 Chronic obstructive pulmonary disease, unspecified; G20 Parkinson's disease; I71.40 Abdominal aortic aneurysm, without rupture, unspecified; I25.2 Old myocardial infarction; F17.200 Nicotine dependence, unspecified, uncomplicated; Z95.1 Presence of aortocoronary bypass graft; Z95.5 Presence of coronary angioplasty implant and graft; Z86.718 Personal history of other venous thrombosis and embolism

== ENCOUNTER 2023-01-06 12:11 | Observation (INO) | payer MEDICARE ==
[~2023-01-06] VITALS: Ht 172.7 cm; Wt 64.6 kg
[2023-01-06 12:55] LABS: BASO% 0.5 % (0-3); EOS% 0.7 % (0-8); IMMATURE GRANULOCYTES 0.2 % (0.0-5.0); LYMPH% 24.4 % (15-41); MEAN CORPUSCULAR HGB 25.7 pG CALC (26.0-32.0); MEAN CORPUSCULAR HGB CONC 29.1 g/dL CAL (32.0-36.0); MONO% 1.6 % (2-13); NEUT# 3.19 thou/uL (1.82-7.42); NEUT% 72.6 % (42-76); RED BLOOD COUNT 5.71 mill/uL (4.70-6.10); RED CELL DISTRI WIDTH 23.2 % (11.5-15.5)
[2023-01-06 13:03] LABS: ALBUMIN 4.5 g/dL (3.2-5.0); ALKALINE PHOSPHATASE 79 u/l (38-126); ANION GAP 11 (6-22 (CALC)); BILIRUBIN, TOTAL 0.4 mg/dL (0.2-1.3); BUN 20 mg/dL (8-23); BUN/CREATININE RATIO 16 (12-20 (CALC)); CARBON DIOXIDE 25 mmol/l (22-30); CHLORIDE 108 mmol/l (95-108); CREATININE 1.3 mg/dL (0.7-1.3); GFR FOR AFR.AMER. > 60 ML/MIN (>=60 (CALC)); GFR OTHER RACES 54 ML/MIN (>=60 (CALC)); POTASSIUM 3.8 mmol/l (3.5-5.1); SGOT/AST 26 u/l (19-48); SODIUM 141 mmol/l (137-146); TOTAL PROTEIN 7.2 g/dL (6.3-8.2)
[2023-01-06 13:24] LABS: HEMATOCRIT 50.5 % (39.0-50.0); HEMOGLOBIN 14.7 g/dl (14.0-18.0); MEAN CELL VOLUME 88.4 fL CALC (80.0-100.0)
[2023-01-06 15:50] VITALS: BP 101/50
[2023-01-06] MEDS ORDERED: MORPHINE SUL15 M2 PO (16:04)
[2023-01-06] MEDS ORDERED: AMLODIPINE BESYL5 MG PO (16:29)
[2023-01-06] MEDS ORDERED: PREDNISONE20 MG PO (17:39)
[2023-01-06 19:00] VITALS: BP 101/50
[2023-01-06 23:43] VITALS: BP 124/53
[2023-01-07 01:18] VITALS: BP 127/54
[2023-01-07 04:04] VITALS: BP 134/59
[2023-01-07 07:00] VITALS: BP 150/63
[2023-01-07 09:13] VITALS: BP 149/55
[2023-01-07 09:16] VITALS: BP 149/55
[2023-01-07] MEDS ORDERED: ATROVENT H17 MCG/ACT IN (11:38)
[2023-01-07] MEDS ORDERED: PREDNISONE20 MG PO (11:38)
== END 2023-01-07 12:06 | disposition home or self-care (01) ==
LOC: ED 12:11 → ED-I 14:20 → ED 14:46 → MS2 14:47
PROVIDERS: Family Medicine; ADMIT Internal Medicine; ATTEND Internal Medicine
DX: J43.9 Emphysema, unspecified (principal); J96.11 Chronic respiratory failure with hypoxia; I10 Essential (primary) hypertension; I25.10 Atherosclerotic heart disease of native coronary artery without angina pectoris; E78.5 Hyperlipidemia, unspecified; G89.29 Other chronic pain; I71.40 Abdominal aortic aneurysm, without rupture, unspecified; I73.9 Peripheral vascular disease, unspecified; F17.200 Nicotine dependence, unspecified, uncomplicated; I25.2 Old myocardial infarction; Z95.5 Presence of coronary angioplasty implant and graft; Z95.1 Presence of aortocoronary bypass graft; Z99.81 Dependence on supplemental oxygen; Z86.73 Personal history of transient ischemic attack (TIA), and cerebral infarction without residual deficits; Z95.828 Presence of other vascular implants and grafts; Z20.822 Contact with and (suspected) exposure to COVID-19
CPT/HCPCS: J1650; Q0138

== ENCOUNTER 2023-02-18 18:14 | Observation (INO) | payer MEDICARE ==
[2023-02-18] VITALS (10 sets, daily range): BP systolic 129–147; BP diastolic 60–69
[~2023-02-18] VITALS: Ht 172.7 cm; Wt 70.0 kg
[~2023-02-18 18:14] MED LIST changes: +AMLODIPINE BESYL5 MG PO; +ATROVENT H17 MCG/ACT IN; +MORPHINE SUL15 M2 PO
[2023-02-18 18:59] LABS: BASO% 0.3 % (0-3); EOS% 3.7 % (0-8); HEMATOCRIT 45.7 % (39.0-50.0); IMMATURE GRANULOCYTES 0.3 % (0.0-5.0); LYMPH% 18.9 % (15-41); MEAN CELL VOLUME 89.1 fL CALC (80.0-100.0); MEAN CORPUSCULAR HGB 27.3 pG CALC (26.0-32.0); MEAN CORPUSCULAR HGB CONC 30.6 g/dL CAL (32.0-36.0); MONO% 8.1 % (2-13); NEUT# 4.65 thou/uL (1.82-7.42); NEUT% 68.7 % (42-76); RED BLOOD COUNT 5.13 mill/uL (4.70-6.10); RED CELL DISTRI WIDTH 18.3 % (11.5-15.5)
[2023-02-18 19:10] LABS: ALBUMIN 3.4 g/dL (3.2-5.0); ALKALINE PHOSPHATASE 84 u/l (38-126); ANION GAP 8 (6-22 (CALC)); BILIRUBIN, TOTAL 0.4 mg/dL (0.2-1.3); BUN 10 mg/dL (8-23); BUN/CREATININE RATIO 9 (12-20 (CALC)); CARBON DIOXIDE 30 mmol/l (22-30); CHLORIDE 107 mmol/l (95-108); CREATININE 1.1 mg/dL (0.7-1.3); GFR FOR AFR.AMER. > 60 ML/MIN (>=60 (CALC)); GFR OTHER RACES > 60 ML/MIN (>=60 (CALC)); POTASSIUM 3.7 mmol/l (3.5-5.1); SGOT/AST 23 u/l (19-48); SODIUM 141 mmol/l (137-146); TOTAL PROTEIN 5.8 g/dL (6.3-8.2)
[2023-02-18] MEDS ORDERED: CLOPIDOGREL75 MG PO (23:27)
[2023-02-19 02:23] LABS: CHOLESTEROL HDL RATIO 2.7 (<4.4 (CALC)); MAGNESIUM 2.2 mg/dL (1.6-2.3)
[2023-02-19 03:41] VITALS: BP 127/65
[2023-02-19 04:06] VITALS: BP 127/65
[2023-02-19 06:20] VITALS: BP 139/62
[2023-02-19 07:13] LABS: URINE BILIRUBIN - DIPSTICK NEGATIVE (NEGATIVE); URINE BLOOD DIPSTICK NEGATIVE (NEGATIVE); URINE COLOR YELLOW; URINE GLUCOSE - DIPSTICK 100 mg/dL (NEGATIVE); URINE KETONE NEGATIVE (NEGATIVE); URINE LEUK ESTERASE NEGATIVE (NEGATIVE); URINE PROTEIN - DIPSTICK NEGATIVE (NEG-TRACE); URINE UROBILINOGEN - DIPSTICK 0.2 E.U./dL (0.2)
[2023-02-19 07:20] LABS: URINE NITRITE - DIPSTICK NEGATIVE (Negative)
[2023-02-19] MEDS ORDERED: MEDDOSEPAK PO (10:52)
[2023-02-19 11:17] VITALS: BP 143/68
== END 2023-02-19 11:21 | disposition home or self-care (01) ==
LOC: ED 18:14 → MS2 19:58
PROVIDERS: Emergency Medicine; ADMIT Internal Medicine; ATTEND Internal Medicine
DX: R07.9 Chest pain, unspecified (principal); J43.9 Emphysema, unspecified; I10 Essential (primary) hypertension; J96.11 Chronic respiratory failure with hypoxia; I25.10 Atherosclerotic heart disease of native coronary artery without angina pectoris; I25.2 Old myocardial infarction; I71.40 Abdominal aortic aneurysm, without rupture, unspecified; I73.9 Peripheral vascular disease, unspecified; E78.5 Hyperlipidemia, unspecified; G20 Parkinson's disease; F17.200 Nicotine dependence, unspecified, uncomplicated; Z95.1 Presence of aortocoronary bypass graft; Z95.5 Presence of coronary angioplasty implant and graft; Z99.81 Dependence on supplemental oxygen; Z86.73 Personal history of transient ischemic attack (TIA), and cerebral infarction without residual deficits; Z95.828 Presence of other vascular implants and grafts; Z20.822 Contact with and (suspected) exposure to COVID-19

== ENCOUNTER 2024-09-21 19:11 | Emergency (ER) | payer MEDICARE ==
[~2024-09-21] VITALS: Ht 172.7 cm; Wt 67.0 kg
[2024-09-21] VITALS (8 sets, daily range): BP systolic 135–161; BP diastolic 64–126
[~2024-09-21 19:11] MED LIST changes: +AZITHROMYCIN500 MG PO; +CEFDINIR300 MG PO
[2024-09-21] MEDS ORDERED: IPRATROPIUM-Albuterol 0.5MG-2.5MG/3 ML NEB ONE (19:30)
[2024-09-21] MEDS ORDERED: LEVALBUTEROL HCL 1.25 MG/3 ML VIAL NEB ONE (19:40)
[2024-09-21 19:57] LABS: BASO% 0.5 % (0-3); EOS% 3.9 % (0-8); HEMATOCRIT 46.2 % (39.0-50.0); HEMOGLOBIN 14.7 g/dl (14.0-18.0); LYMPH% 12.6 % (15-41); MEAN CELL VOLUME 97.7 fL CALC (80.0-100.0); MEAN CORPUSCULAR HGB 31.1 pG CALC (26.0-32.0); MEAN CORPUSCULAR HGB CONC 31.8 g/dL CAL (32.0-36.0); MONO% 10.9 % (2-13); NEUT# 4.29 thou/uL (1.82-7.42); NEUT% 72.1 % (42-76); RED BLOOD COUNT 4.73 mill/uL (4.70-6.10); RED CELL DISTRI WIDTH 13.4 % (11.5-15.5)
[2024-09-21 20:09] LABS: ALBUMIN 4.2 g/dL (3.2-5.0); ALKALINE PHOSPHATASE 87 u/l (38-126); BUN 12 mg/dL (8-23); BUN/CREATININE RATIO 11 (12-20 (CALC)); CHLORIDE 107 mmol/l (95-108); CPK 102 u/l (55-170); CREATININE 1.2 mg/dL (0.7-1.3); ESTIMATED GFR 62 ML/MIN (>=90 (CALC)); POTASSIUM 4.8 mmol/l (3.5-5.1); SGOT/AST 37 u/l (19-48); SODIUM 142 mmol/l (137-146)
[2024-09-21 20:13] LABS: ANION GAP 11 (6-22 (CALC)); BILIRUBIN, TOTAL 0.8 mg/dL (0.2-1.3); CARBON DIOXIDE 29 mmol/l (22-30); TOTAL PROTEIN 7.1 g/dL (6.3-8.2)
[2024-09-21] MEDS ORDERED: BENZONATATE200 MG PO (22:02)
[2024-09-21] MEDS ORDERED: DECADRON4 MG PO (22:02)
[2024-09-21] MEDS ORDERED: XOPENEX HFA45 MCG PO (22:02)
== END 2024-09-21 22:15 | disposition home or self-care (01) ==
LOC: ED 19:11
PROVIDERS: Family Medicine
DX: J00 Acute nasopharyngitis [common cold] (principal); J44.9 Chronic obstructive pulmonary disease, unspecified; I10 Essential (primary) hypertension; G40.909 Epilepsy, unspecified, not intractable, without status epilepticus; G20.A1 Parkinson's disease without dyskinesia, without mention of fluctuations; I71.40 Abdominal aortic aneurysm, without rupture, unspecified; I25.2 Old myocardial infarction; F17.200 Nicotine dependence, unspecified, uncomplicated; Z86.73 Personal history of transient ischemic attack (TIA), and cerebral infarction without residual deficits; Z99.81 Dependence on supplemental oxygen; Z20.822 Contact with and (suspected) exposure to COVID-19
CPT/HCPCS: J1100; Q9967